=== PATIENT | female | born 1965 | race Caucasian/White ===

== ENCOUNTER 2021-03-04 10:45 | Observation (INO) | payer OTHER ==
[~2021-03-04 10:45] MED LIST: Iopamidol-370 76% 500 ML 1 ML ONE
[2021-03-04] MEDS ORDERED: Morphine 4 MG/ML VIAL ONE (11:29)
[2021-03-04] MEDS ORDERED: Ondansetron PF 4 MG/2 ML Vial ONE (11:29)
[2021-03-04 12:22] LABS: #Basophils 0.1 thou/uL (0.0-0.2); #Lymphocytes 1.3 thou/uL (1.20-3.40); #Monocytes 0.4 thou/uL (0.11-0.59); #Neutrophils 3.1 thou/uL (1.40-6.50); %Basophils 1.2 % (0.0-1.0); %Eosinophils 0.1 % (0.0-10.0); %Lymphocytes 26.6 % (21.0-51.0); %Monocytes 7.8 % (0.0-10.0); %Neutrophils 64.2 % (42.0-75.0); Hemoglobin 13.3 g/dL (12.0-16.0); Mean Corpuscular HGB CONC 33.8 g/dL (32.0-36.0); Mean Corpuscular Hemoglobin 31.3 pg (27.0-31.0); Mean Corpuscular Volume 92.6 fL (78.0-98.0); Mean Platelet Volume 8.3 fL (7.4-10.4); Platelet Count 191 thou/uL (130-400); RBC Distribution Width 11.6 % (11.5-14.5); Red Blood Cell (RBC) Count 4.25 mill/uL (4.20-5.40); White Blood Cell (WBC) Count 4.8 thou/uL (4.8-10.8)
[2021-03-04 12:39] LABS: ALT (SGPT) 15 U/L (8-55); AST (SGOT) 21 U/L (5-34); Albumin 3.9 g/dL (3.5-5.0); Alkaline Phosphatase 90 U/L (40-110); Anion Gap 11 mmol/L (10-20); BUN (Urea Nitrogen) 16 mg/dL (9.8-20.1); Bilirubin, Total 0.3 mg/dL (0.2-1.2); Calc. Creatinine Clearance 0 mL/min (70-130); Calcium 9.2 mg/dL (7.8-10.44); Carbon Dioxide 26 mmol/L (22-29); Chloride 108 mmol/L (98-107); Globulin 2.4 g/dL (2.4-3.5); Glucose 91 mg/dL (70-105); Potassium 4.2 mmol/L (3.5-5.1); Protein, Total 6.3 g/dL (6.0-8.3); Sodium 141 mmol/L (136-145)
[2021-03-04] MEDS ORDERED: Acetaminophen 500 MG TAB ONE (13:02)
[2021-03-04] MEDS ORDERED: Nitroglycerin 0.4 MG TAB (25 Tab Bottle) SL PRN (14:40)
[2021-03-04] MEDS ORDERED: Acetaminophen 650 MG Suppository PR PRN (14:42)
[2021-03-04] MEDS ORDERED: Senokot S 8.6-50 MG TAB PO PRN (14:42)
[2021-03-04] MEDS ORDERED: Ondansetron ODT 4 MG TAB PO PRN (14:42)
[2021-03-04] MEDS ORDERED: Ondansetron PF 4 MG/2 ML Vial IVP PRN (14:42)
[2021-03-04 15:34] LABS: Hemoglobin A1c 5.3 % (4.0-6.0)
[2021-03-04 15:56] LABS: Magnesium 1.7 mg/dL (1.6-2.6)
[2021-03-04 15:59] LABS: Troponin I Less than 0.010 ng/mL (< 0.028)
[2021-03-04 16:34] VITALS: BMI 33.5
[2021-03-04] MEDS: Acetaminophen 325 MG TAB PO PRN (20:02)
[2021-03-04 20:19] LABS: Troponin I Less than 0.010 ng/mL (< 0.028)
[2021-03-05 02:42] LABS: Bacteria/HPF None Seen HPF (None Seen); Bilirubin Negative (Negative); Blood, Urine Negative (Negative); Clarity Clear (Clear); Glucose, Urine (Dipstick) Normal (Negative); Ketone, Urine Negative (Negative); Leukocyte 500 Leu/uL (Negative); Nitrite Negative (Negative); Protein, Urine (Dipstick) Negative (Neg-Trace); RBC/HPF 0-3 HPF (0-3); Specific Gravity, Urine 1.035 (1.002-1.036); Squamous Epithelial 0-3 HPF (0-3); Urobilinogen Normal mg/dL (Less than 2); WBC/HPF 21-50 HPF (0-3); pH, Urine 5.5 (5.0-9.0)
[2021-03-05 02:47] LABS: Urine Culture Reflex Yes Yes
[2021-03-05 05:49] LABS: #Lymphocytes 1.6 thou/uL (1.20-3.40); #Monocytes 0.4 thou/uL (0.11-0.59); #Neutrophils 1.9 thou/uL (1.40-6.50); %Basophils 0.6 % (0.0-1.0); %Eosinophils 0.2 % (0.0-10.0); %Lymphocytes 40.3 % (21.0-51.0); %Monocytes 10.9 % (0.0-10.0); Mean Corpuscular HGB CONC 33.3 g/dL (32.0-36.0); Mean Corpuscular Hemoglobin 31.3 pg (27.0-31.0); Mean Platelet Volume 8.3 fL (7.4-10.4); Platelet Count 184 thou/uL (130-400); RBC Distribution Width 11.8 % (11.5-14.5); Red Blood Cell (RBC) Count 4.17 mill/uL (4.20-5.40)
[2021-03-05 06:04] LABS: Anion Gap 12 mmol/L (10-20); BUN (Urea Nitrogen) 14 mg/dL (9.8-20.1); Calc. Creatinine Clearance 94 mL/min (70-130); Calcium 9.1 mg/dL (7.8-10.44); Carbon Dioxide 24 mmol/L (22-29); Cardiac Risk 5.5 (Less than 4.5); Chloride 110 mmol/L (98-107); Cholesterol 192 mg/dl (< 200 Desired); Glucose 89 mg/dL (70-105); HDL Cholesterol 35 mg/dL (>60 Neg Risk); LDL Cholesterol, Calculated 127 mg/dL; Potassium 4.2 mmol/L (3.5-5.1); Sodium 142 mmol/L (136-145); Triglycerides 150 mg/dL (Less than 150)
[2021-03-05] MEDS: Acetaminophen 325 MG TAB PO PRN (08:58)
[2021-03-05] MEDS ORDERED: Enoxaparin Sodium 40 MG/0.4 ML SYRINGE SC SCH (09:00)
[2021-03-05] MEDS ORDERED: ADENOSINE 60 MG/20 ML VIAL ONE (09:03)
[2021-03-05 13:12] VITALS: BP 135/75; TEMP 98
[2021-03-05] MEDS ORDERED: Aspirin 81 mg Enteric Coated Tablet PO SCH (13:45)
[2021-03-05] MEDS ORDERED: Cefdinir 300 MG CAP PO SCH (14:00)
[2021-03-05] MEDS ORDERED: Pregabalin 75 MG CAP PO SCH (15:00)
[2021-03-05] MEDS ORDERED: busPIRone HCl 10 MG TAB PO SCH (15:00)
[2021-03-05 16:21] LABS: SARS-CoV-2 PCR by NAA Not Detected (NotDetected)
[2021-03-05] MEDS ORDERED: TAPENTADOL HCL 50 MG PO SCH (21:00)
[2021-03-06] MEDS ORDERED: Levothyroxine Sodium 88 MCG TAB PO SCH (06:00)
[2021-03-06] MEDS ORDERED: Lisinopril 20 MG TAB PO SCH (09:00)
[2021-03-06] MEDS ORDERED: Aspirin 81 mg Enteric Coated Tablet PO SCH (09:00)
[2021-03-12] MEDS ORDERED: cloNIDine 0.1mg/24 Hour PATCH TD SCH (09:00)
== END 2021-03-05 18:00 | disposition home or self-care (01) ==
LOC: ERS 10:45 → 2NO 14:12
PROVIDERS: ADMIT Internal Medicine; ATTEND Internal Medicine
DX: R07.89 Other chest pain (principal); N39.0 Urinary tract infection, site not specified; M79.7 Fibromyalgia; D68.51 Activated protein C resistance; E03.9 Hypothyroidism, unspecified; E78.5 Hyperlipidemia, unspecified; M19.90 Unspecified osteoarthritis, unspecified site; I37.1 Nonrheumatic pulmonary valve insufficiency; I12.9 Hypertensive chronic kidney disease with stage 1 through stage 4 chronic kidney disease, or unspecified chronic kidney disease; N18.2 Chronic kidney disease, stage 2 (mild); E66.9 Obesity, unspecified; Z68.33 Body mass index [BMI] 33.0-33.9, adult; Z85.038 Personal history of other malignant neoplasm of large intestine; Z79.82 Long term (current) use of aspirin; Z79.899 Other long term (current) drug therapy; Z90.49 Acquired absence of other specified parts of digestive tract; Z20.822 Contact with and (suspected) exposure to COVID-19
CPT/HCPCS: 36415; 71275; 78452; 80048; 80053; 80061; 81001; 83036; 83735; 84443; 84484; 85025; 87086; 93005; 93017; 93306; 94760; 96372; 96374; 96375; A9500; G0378; J0153; J1650; J2270; J2405; Q9967; U0003; U0005